=== PATIENT | male | born 1990 | race African-American/Black ===

== ENCOUNTER 2019-07-02 15:57 | Emergency (ER) | payer SELFPAY ==
[~2019-07-02] VITALS: Ht 172.7 cm; Wt 54.9 kg
[2019-07-02 16:06] VITALS: BP 129/79
[2019-07-02] MEDS ORDERED: GUAI1TBM10 PO (16:18)
[2019-07-02] MEDS ORDERED: HYDR-2163 PO (16:18)
--- NOTE | 2019-07-02 16:18 | PHYS DOC ---
Past History Past Medical History: No Pertinent History Past Surgical History: No Surgical History Alcohol Use: None Drug Use: None Adult General Chief Complaint Chief Complaint: HEADACHE HPI HPI Patient is a 28-year-old -[place] male presents with flulike symptoms. Patient reports fever chills, body aches, chest, back pain and sore throat the past 5 days. Patient also reports headache after coughing and sneezing. No neck stiffness appreciated rash. Patient's taken Sudafed with some relief of symptoms. Patient was at work and sent to the ED by his boss for evaluation. Patient has not seen a provider for his symptoms prior to today's complaint.[] Review of Systems Review of Systems Review symptoms as per history of present illness. All other review symptoms are negative. All other systems were reviewed and found to be within normal limits, except as documented in this note. Physical Exam Physical Exam Constitutional: Well developed, well nourished, no acute distress, non-toxic appearance. [] HENT: Normocephalic, atraumatic, bilateral external ears normal, oropharynx moist, no exudate, nose, erythema mucous membranes[] Eyes: PERRLA, EOMI, conjunctiva normal, no discharge. [] Neck: Normal range of motion, no dizziness or rigidity, anterior cervical lymphadenopathy. [] Cardiovascular: Tachycardic[] Lungs & Thorax: Patient's nonlabored mildly diminished breath sounds bilaterally,(her rales auscultated.[] Abdomen: Bowel sounds normal, soft, no tenderness, no masses, no pulsatile masses. [] Skin: Warm, dry, no erythema, no rash. [] Back: No tenderness, no CVA tenderness. [] Extremities: No tenderness, no cyanosis, no clubbing, ROM intact, no edema. [] Neurologic: Alert and oriented X 3, normal motor function, normal sensory function, no focal deficits noted. [] Psychologic: Affect normal, judgement normal, mood normal. [] Current Patient Data Vital Signs Vital Signs Date Time Temp Pulse Resp B/P (MAP) Pulse Ox O2 Delivery O2 Flow Rate FiO2 07/02/19 16:06 99.5 103 16 98 Room Air EKG EKG [] Radiology/Procedures Radiology/Procedures []Chest x-ray pending Course & Med Decision Making Course & Med Decision Making Pertinent Labs and Imaging studies reviewed. (See chart for details) [Will obtain imaging studies. Anticipate supportive care with work note and discharge home if chest x-rays negative.] Dragon Disclaimer Dragon Disclaimer This electronic medical record was generated, in whole or in part, using a voice recognition dictation system. Departure Departure: Impression: Primary Impression: Influenza-like illness Disposition: HOME, SELF-CARE Condition: STABLE Referrals: PCP,NO (PCP) Patient Instructions: Influenza Facts Additional Instructions: Please increase fluids, continue pseudoephedrine and take Mucinex and directed. Follow-up with local PCP in 3-5 days for reevaluation if symptoms persist. Return to the ED if new or worsening symptoms. Scripts Hydrocodone Bit/Acetaminophen (HYDROCODONE-APAP 5-300) 1 Each Tablet 1 TAB PO PRN Q6HRS PRN for PAIN, #10 TAB 0 Refills Prov: NAKUL KRAMER DO 07/02/19 Guaifenesin/Dextromethorphan (MUCINEX DM ER 1,200-60 MG TAB) 1 Each Tbmp.12hr 1 TAB PO BID for cough and congestion for 10 Days, #20 TAB 0 Refills Prov: NAKUL KRAMER DO 07/02/19 NAKUL KRAMER DO Jul 02, 2019 16:18
--- NOTE | 2019-07-02 16:45 | RAD ---
Indication: Cough TECHNIQUE: 2 views of the chest COMPARISON: None FINDINGS: Heart is normal in size. Lungs are clear. No pneumothorax or pleural effusion. Visualized bony thorax within normal limits. IMPRESSION: No acute pulmonary process. Electronically signed by: Gene Oro DO (07/02/2019 4:42 PM) [facility]
== END 2019-07-02 16:38 | disposition home or self-care (01) ==
LOC: ER 15:57
DX: J11.1 Influenza due to unidentified influenza virus with other respiratory manifestations (principal)
CPT/HCPCS: 71046; 99284

== ENCOUNTER 2019-11-10 20:26 | Emergency (ER) | payer SELFPAY ==
[~2019-11-10 20:26] MED LIST: GUAI1TBM10 PO; HYDR-2163 PO
--- NOTE | 2019-11-10 20:30 | PHYS DOC ---
Past History Past Medical History: No Pertinent History Past Surgical History: No Surgical History Alcohol Use: None Drug Use: None General Adult HPI: HPI: Patient is a 28 year old male who presents with above hx and complaints of dysuria. As pt. was checking in. Then when was going to be place in room, pt. sign a LWBS form. Did not see this pt. Review of Systems: Review of Systems: : Hx. dysuria Heart Score: Risk Factors: Risk Factors: DM, Current or recent (<one month) smoker, HTN, HLP, family history of CAD, obesity. Risk Scores: Score 0 - 3: 2.5% MACE over next 6 weeks - Discharge Home Score 4 - 6: 20.3% MACE over next 6 weeks - Admit for Clinical Observation Score 7 - 10: 72.7% MACE over next 6 weeks - Early Invasive Strategies Physical Exam: PE: Pt. left before placed in exam room from the front counter attendant. EKG: EKG: [] Radiology/Procedures: Radiology/Procedures: [] Course & Med Decision Making: Course & Med Decision Making Pertinent Labs and Imaging studies reviewed. (See chart for details) Pt. left with out being seen. [] Dragon Disclaimer: Dragon Disclaimer: This electronic medical record was generated, in whole or in part, using a voice recognition dictation system. Departure Departure: Disposition: 01 HOME/RESIDENCE PRIOR TO ADM Condition: STABLE Referrals: PCP,NO (PCP) Dragtrue Disclaimer This chart was dictated in whole or in part using Voice Recognition software in a busy, high-work load, and often noisy Emergency Department environment. It may contain unintended and wholly unrecognized errors or omissions. MERNA ALFREDO MD Nov 10, 2019 20:30
== END 2019-11-10 20:32 | disposition left against medical advice (07) ==
LOC: ER 20:26
DX: R30.0 Dysuria (principal); Z53.21 Procedure and treatment not carried out due to patient leaving prior to being seen by health care provider